=== PATIENT | male | born 1970 | race Caucasian/White ===

== ENCOUNTER 2016-06-27 06:25 | Inpatient (IN) | payer BC ==
[2016-06-27] MEDS: Lactated Ringers 1,000 ML IV SCH ×2 (06:50→12:29)
[2016-06-27] MEDS ORDERED: fentaNYL 250 MCG/5 ML SDV ONE (07:20)
[2016-06-27] MEDS ORDERED: Midazolam 1 MG/ML 2 ML SDV ONE (07:20)
[2016-06-27] MEDS ORDERED: Lidocaine 2% 5 ML SDV ONE (07:20)
[2016-06-27] MEDS ORDERED: Propofol 200 MG/20 ML SDV ONE ×2 (07:20→09:06)
[2016-06-27] MEDS ORDERED: Ondansetron 4 MG/2 ML SDV ONE (07:24)
[2016-06-27] MEDS ORDERED: Neostigmine Methylsulfate 1 MG/ML 5 ML Syringe ONE (07:24)
[2016-06-27] MEDS ORDERED: Ketorolac 30 MG/ML SDV ONE (07:24)
[2016-06-27] MEDS ORDERED: Rocuronium 10 MG/ML 10 ML Syringe ONE (07:24)
--- NOTE | 2016-06-27 07:28 | PCM.PREANE ---
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 Respiratory: Reports: no symptoms Cardiovascular: Reports: no symptoms (however, detailed cardiac w/u for angina last year), blood pressure problem (treated) GI: Reports: no symptoms Other: Reports: none - PHYSICAL ASSESSMENT O2 Sat by Pulse Oximetry: 95 RR: 18 Vital Signs: Last Vital Signs Temp 98.2 F 06/27/16 06:48 Pulse 76 06/27/16 06:48 Resp 18 06/27/16 06:48 BP 123/76 06/27/16 06:48 Pulse Ox 95 06/27/16 06:48 Height: 6 ft 2 in Weight: 320 lb ASA Class: 3 Mental Status: alert & oriented x3 Airway Class: Mallampati = 3 Dentition: Reports: normal dentition Thyro-Mental Finger Breadths: 3 Mouth Opening Finger Breadths: 3 ROM/Head Extension: full Respiratory Status: lungs clear to auscultation bilaterally Cardiovascular Status: regular rate & rhythm, no murmur - ALLERGIES Allergies/Adverse Reactions: Allergies Allergy/AdvReac Type Severity Reaction Status Date / Time aspirin Allergy Cannot Verified 01/15/16 11:08 Remember Sulfa (Sulfonamide Allergy Anaphylactic Verified 01/15/16 11:08 Antibiotics) Shock sulfamethoxazole Allergy Anaphylactic Verified 01/15/16 11:08 [From Bactrim] Shock trimethoprim [From Bactrim] Allergy Anaphylactic Verified 01/15/16 11:08 Shock venom-honey bee Allergy Anaphylactic Verified 01/15/16 11:08 [bee venom (honey bee)] Shock - BLOOD Blood Available: Yes Product(s) Available: PRBC - ANESTHESIA PLAN Preop Beta Reshma: Yes Beta Reshma: Metoprolol Anesthesia Type Planned: general anesthesia (patient understood and agreed), spinal - ACKNOWLEDGEMENTS Pt an appropriate candidate for the planned anesthesia: Yes Alternatives and risks of anesthesia discussed w pt/guardian: Yes Pt/Guardian understands and agree with anesthesia plan: Yes PreAnesthesia Questionnaire - Past Health History Medical/Surgical History: Denies Medical/Surgical History HEENT History: Reports: None Cardiovascular History: Reports: High cholesterol, Hypertension, CA Other Cardiovascular History: states CA in dec 2015 Respiratory History: Reports: Sleep apnea Other Respiratory History: uses CPAP Gastrointestinal History: Reports: None Genitourinary History: Reports: None Musculoskeletal History: Reports: Arthritis Neurological History: Reports: None Psychiatric History: Reports: Anxiety Endocrine/Metabolic History: Reports: Obesity/BMI 30+ Hematologic History: Reports: None Immunologic History: Reports: None Oncologic (Cancer) History: Reports: None Dermatologic History: Reports: None - Infectious Disease History Infectious Disease History: Reports: None - Past Surgical History Head Surgeries/Procedures: Reports: None - SUBSTANCE USE Smoking Status *Q: Never Smoker Second Hand Smoke Exposure: No Days Per Week of Alcohol Use: 0 Recreational Drug Use History: No - HOME MEDS Home Medications: Home Meds ALPRAZolam [Xanax] 0.25 mg PO DAILY PRN 01/15/16 [History] Lisinopril/Hydrochlorothiazide [Lisinopril-Hctz 10-12.5 mg Tab] 1 each PO DAILY 01/15/16 [History] Clopidogrel Bisulfate [Plavix] 75 mg PO DAILY 06/22/16 [History] Metoprolol Succinate 50 mg PO DAILY 06/22/16 [History] Multivitamin [Multivitamins] 1 tab PO DAILY 06/22/16 [History] atorvaSTATin Calcium [Atorvastatin Calcium] 20 mg PO DAILY 06/22/16 [History] - CURRENT (IN HOUSE) MEDS Current Meds: Current Medications Lactated Ringer's (Ringers, Lactated) 1,000 mls @ 100 mls/hr IV ASDIRECTED [facility] Last Admin: 06/27/16 06:50 Dose: 100 mls/hr Discontinued Medications Fentanyl (Sublimaze) Confirm Administered Dose 250 mcg .ROUTE .STK-MED ONE Stop: 06/27/16 07:21 Cefazolin Sodium 2,000 mg/ (Sodium Chloride) 100 mls @ 100 mls/hr IV ONETIME ONE Stop: 06/26/16 18:48 Lidocaine (Xylocaine-Mpf 2%) Confirm Administered Dose 10 ml .ROUTE .STK-MED ONE Stop: 06/27/16 07:21 Midazolam HCl (Versed 1 Mg/Ml) Confirm Administered Dose 2 mg .ROUTE .STK-MED ONE Stop: 06/27/16 07:21 Propofol (Diprivan 20 Ml) Confirm Administered Dose 400 mg .ROUTE .STK-MED ONE Stop: 06/27/16 07:21 Tranexamic Acid (Cyklokapron) Confirm Administered Dose 2,000 mg .ROUTE .[facility] MED ONE Stop: 06/26/16 14:51
[2016-06-27] MEDS ORDERED: ceFAZolin 2 GM in Premix Bag 1 BAG IV ONE (07:30)
[2016-06-27] MEDS ORDERED: Succinylcholine/Normal Saline 200 MG/10 ML Syringe IV ONE (08:05)
[2016-06-27] MEDS ORDERED: Phenylephrine/Normal Saline 100 MCG/ML 10 ML Syringe ONE (08:48)
[2016-06-27] MEDS ORDERED: fentaNYL 100 MCG/2 ML SDV IVPUSH PRN (09:02)
[2016-06-27] MEDS ORDERED: HYDROmorphone 2 MG/ML Syringe IVPUSH ONE (09:02)
--- NOTE | 2016-06-27 09:51 | PCM.OPNOTE ---
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
[2016-06-27] MEDS ORDERED: Bisacodyl 10 MG Supp RECTAL PRN (10:03)
[2016-06-27] MEDS ORDERED: Aluminum Hydroxide/Magnesium Hydroxide/Simethicone Susp 30 ML Cup PO PRN (10:03)
[2016-06-27] MEDS ORDERED: diphenhydrAMINE 25 MG Cap PO PRN (10:03)
[2016-06-27] MEDS ORDERED: Morphine 10 MG/ML Syringe IVPUSH PRN (10:03)
[2016-06-27] MEDS ORDERED: Ondansetron 4 MG/2 ML SDV IV PRN (10:03)
[2016-06-27] MEDS ORDERED: ALPRAZolam 0.25 MG Tab PO PRN ×2 (10:04→13:01)
[2016-06-27] MEDS ORDERED: Dermabond Prineo 1 Tube TOP ONE (10:30)
--- NOTE | 2016-06-27 11:22 | CR ---
EXAMINATION: Right hip HISTORY: Surgery COMPARISON: 01/03/2016 TECHNIQUE: 3 views FINDINGS/IMPRESSION: Operative control films demonstrate right total hip hardware in good position a nd alignment. Overlying operative soft tissue changes noted.
--- NOTE | 2016-06-27 11:31 | PCM.POSTAN ---
POST ANESTHESIA ASSESSMENT - MENTAL STATUS Mental Status: alert, oriented - RESPIRATORY Respiratory Status: respiratory rate WNL, airway patent, O2 saturation stable - CARDIOVASCULAR CV Status: pulse rate WNL, blood pressure stable - GASTROINTESTINAL GI Status: no symptoms - PAIN Pain Score: 0 - POST OP HYDRATION Hydration Status: adequate & stable
[2016-06-27] MEDS: Ketorolac 30 MG/ML SDV IVPUSH PRN ×2 (12:38→19:51)
--- NOTE | 2016-06-27 13:07 | PCM.CONS ---
H&P History of Present Illness - General Date of Service: 06/27/16 Admit Problem/Dx: Admission Diagnosis/Problem Admission Diagnosis/Problem Hip pain Source of Information: Patient History Limitations: Reports: Other (still drowsy from PACU, girlfriend Kiara at bedside helps with history) - History of Present Illness Initial Comments - Free Text/Narative: This 46 year old male with pmh of ID without stenting 12/2015, CAD, HTN, obesity , and dyslipidemia presented today for total hip with Dr. Rocha. Hospitalist service consulted due to history of CAD, ID and HTN. Patient has returned from PACU, still slightly drowsy. Girlfriend Kiara at bedside helps with history. He denies any SOB or chest pain now. A little bit of hip pain, but easily falls back asleep. He did not take any medications today, he normally takes all his meds at supper time since it is easier to remember. - Related Data Allergies/Adverse Reactions: Allergies Allergy/AdvReac Type Severity Reaction Status Date / Time aspirin Allergy Cannot Verified 01/15/16 11:08 Remember Sulfa (Sulfonamide Allergy Anaphylactic Verified 01/15/16 11:08 Antibiotics) Shock sulfamethoxazole Allergy Anaphylactic Verified 01/15/16 11:08 [From Bactrim] Shock trimethoprim [From Bactrim] Allergy Anaphylactic Verified 01/15/16 11:08 Shock venom-honey bee Allergy Anaphylactic Verified 01/15/16 11:08 [bee venom (honey bee)] Shock Home Medications: Home Meds ALPRAZolam [Xanax] 0.25 mg PO DAILY PRN 01/15/16 [History] Lisinopril/Hydrochlorothiazide [Lisinopril-Hctz 10-12.5 mg Tab] 1 each PO DAILY 01/15/16 [History] Clopidogrel Bisulfate [Plavix] 75 mg PO DAILY 06/22/16 [History] Metoprolol Succinate 50 mg PO DAILY 06/22/16 [History] Multivitamin [Multivitamins] 1 tab PO DAILY 06/22/16 [History] atorvaSTATin Calcium [Atorvastatin Calcium] 20 mg PO DAILY 06/22/16 [History] Acetaminophen/HYDROcodone [[place] 325-5 MG] 1 - 2 tab PO Q4H PRN #60 tablet 06/27 [Rx] DULoxetine HCl [Cymbalta] 30 mg PO DAILY 06/27/16 [History] Docusate Sodium [Colace] 100 mg PO BID #30 capsule 06/27/16 [Rx] Past Medical History - Past Health History Medical/Surgical History: Denies Medical/Surgical History HEENT History: Reports: None Cardiovascular History: Reports: CAD, High cholesterol, Hypertension, ID ( December 2015, no stents placed, Angiogram revealed non-obstructive CAD with diffuse distal plaquing of the left anterior descending artery.) Respiratory History: Reports: Sleep apnea Other Respiratory History: uses CPAP Gastrointestinal History: Reports: None. Denies: GERD, GI bleed Genitourinary History: Reports: None Musculoskeletal History: Reports: Arthritis Neurological History: Reports: None. Denies: CVA, TIA Psychiatric History: Reports: Anxiety Endocrine/Metabolic History: Reports: Obesity/BMI 30+ Hematologic History: Reports: None Immunologic History: Reports: None Oncologic (Cancer) History: Reports: None Dermatologic History: Reports: None - Infectious Disease History Infectious Disease History: Reports: None - Past Surgical History Head Surgeries/Procedures: Reports: None Social & Family History - Tobacco Use Smoking Status *Q: Never Smoker Second Hand Smoke Exposure: No - Caffeine Use Caffeine Use: Reports: Coffee - Alcohol Use Alcohol Use History: No Days Per Week of Alcohol Use: 0 - Recreational Drug Use Recreational Drug Use: No - Living Situation & Occupation Living situation: Reports: with significant other Occupation: employed H&P Review of Systems - Review of Systems: Review Of Systems: See Below General: Reports: no symptoms. Denies: fever, chills, malaise HEENT: Reports: no symptoms. Denies: ear pain, sinus congestion, visual changes Pulmonary: Reports: no symptoms. Denies: shortness of breath, cough, sputum Cardiovascular: Reports: no symptoms. Denies: chest pain, palpitations, edema Gastrointestinal: Reports: No symptoms. Denies: Abdominal pain Genitourinary: Reports: no symptoms Musculoskeletal: Reports: joint pain (R hip, 2/10) Skin: Reports: no symptoms Psychiatric: Reports: no symptoms Neurological: Reports: no symptoms Hematologic/Lymphatic: Reports: no symptoms Immunologic: Reports: no symptoms Exam - Exam Exam: See Below - Vital Signs Vital Signs: Last Vital Signs Temp 97.3 F 06/27/16 10:05 Pulse 80 06/27/16 10:55 Resp 20 06/27/16 10:55 BP 148/86 H 06/27/16 10:55 Pulse Ox 97 06/27/16 10:55 Weight: 145.15 kg - Exam Quality Assessment: supplemental oxygen, DVT prophylaxis General: alert, oriented, cooperative, other (still drowsy from sedation.) HEENT: Conjunctiva clear, EACs clear, EOMI, Hearing intact, Mucosa moist & pink , Nares patent, PERRLA Neck: supple, trachea midline, 2 Lungs: Clear to auscultation, Normal respiratory effort Cardiovascular: regular rate, regular rhythm, normal S1, normal S2. No: systolic murmur Abdomen: normal bowel sounds, soft. No: organomegaly, tenderness Extremities: normal inspection, normal pulses. No: edema Skin: incision Neuro Extensive - Mental Status: alert, oriented x3 Neuro Extensive - Motor, Sensory, Reflexes: CN II-XII intact, normal gait, normal reflexes Psychiatric: alert, normal affect, normal mood - Patient Data Lab Results last 24 hrs: Laboratory Results - last 24 hr 06/27/16 Range/Units 07:07 Blood Type A POSITIVE Antibody Screen NEGATIVE Consult PN Assessment/Plan Procedures: Procedures ASSAY OF TROPONIN QUANT (01/15/16) CHEST X-RAY 1 VIEW FRONTAL (01/15/16) COMPLETE CBC W/AUTO DIFF WBC (01/15/16) COMPREHEN METABOLIC PANEL (01/15/16) CREATINE MB FRACTION (01/15/16) ELECTROCARDIOGRAM TRACING (01/15/16) EMERGENCY DEPT VISIT (01/15/16) EMERGENCY DEPT VISIT (11/01/13) THER/PROPH/DIAG INJ SC/IM (01/15/16) X-RAY EXAM HIP UNI 2-3 VIEWS (01/03/16) (1) Hx of non-ST elevation myocardial infarction (NSTEMI) SNOMED Code(s): 2763723 Code(s): I25.2 - OLD MYOCARDIAL INFARCTION Current Visit: Yes (2) HTN (hypertension) SNOMED Code(s): 28944817 Code(s): I10 - ESSENTIAL (PRIMARY) HYPERTENSION Current Visit: Yes Qualifiers: Hypertension type: essential hypertension Qualified Code(s): I10 - Essential (primary) hypertension (3) Dyslipidemia SNOMED Code(s): 954344096 Code(s): E78.5 - HYPERLIPIDEMIA, UNSPECIFIED Current Visit: Yes (4) CAD (coronary artery disease) SNOMED Code(s): 69257941 Code(s): I25.10 - ATHSCL HEART DISEASE OF [place] CORONARY ARTERY W/O ANG PCTRS Current Visit: Yes Qualifiers: Coronary Disease-Associated Artery/Lesion type: [place] artery [place] vs. transplanted heart: [place] heart Associated angina: without angina Qualified Code(s): I25.10 - Atherosclerotic heart disease of [place] coronary artery without angina pectoris (5) Obesity SNOMED Code(s): 375171610 Code(s): E66.9 - OBESITY, UNSPECIFIED Current Visit: Yes Problem List Initiated/Reviewed/Updated: Yes My Orders last 24 hours: My Active Orders 06/27/16 12:57 Telemetry Monitoring [Cardiac Monitoring] [RC] . DIRECTED Plan: This 46 year old male admitted with Dr Rocha for R total hip arthoplasty 1. HTN: Continue Lisinopril/HCTZ, Metoprolol XR 2. CAD: Continue Plavix, and Atorvastatin 3. Anxiety: Continue Xanax 4. Hx NSTEMI: No chest pain currently. Will monitor on telemetry during stay. VTE: Per Ortho.
[2016-06-27] MEDS: ceFAZolin 2 GM in Premix Bag 1 BAG IV SCH (15:47)
[2016-06-27 15:49] LABS: CHLORIDE,CL 106 mmol/L (98-110); SODIUM,NA 140 mmol/L (136-146)
[2016-06-27] MEDS: Acetaminophen/HYDROcodone 325-5 MG Tab PO PRN (17:15)
[2016-06-27] MEDS: Lisinopril 10 MG Tab PO SCH (17:15)
[2016-06-27] MEDS: Clopidogrel 75 MG Tab PO SCH (17:17)
[2016-06-27] MEDS: Hydrochlorothiazide 12.5 MG Cap PO SCH (17:17)
[2016-06-27] MEDS: atorvaSTATin 20 MG Tab PO SCH (17:17)
[2016-06-27] MEDS: Multivitamins with Iron/Calcium/Folic Acid/Minerals Tab PO SCH (17:17)
[2016-06-27] MEDS: Metoprolol Succinate 50 MG Tab.ER PO SCH (17:17)
[2016-06-27] MEDS: Docusate Sodium 100 MG Cap PO SCH (20:07)
[2016-06-27] MEDS ORDERED: Acetaminophen 500 MG Tab PO PRN (20:34)
[2016-06-28] MEDS: Lactated Ringers 1,000 ML IV SCH (00:01)
[2016-06-28] MEDS: ceFAZolin 2 GM in Premix Bag 1 BAG IV SCH (00:13)
[2016-06-28 05:52] LABS: CHLORIDE,CL 106 mmol/L (98-110); SODIUM,NA 140 mmol/L (136-146)
--- NOTE | 2016-06-28 06:16 | OR ---
SURGEON: Frankie Rocha MD DATE OF PROCEDURE: 06/27/2016 PRACTICAL NURSE CLINICAL COORDINATOR: Yeimy Bansal PA-C. PREOPERATIVE DIAGNOSIS: Right hip dysplasia with osteoarthritis. POSTOPERATIVE DIAGNOSIS: Right hip dysplasia with osteoarthritis. OPERATION PERFORMED: Right anterior total hip arthroplasty. ANESTHESIA: Spinal and general. COMPLICATIONS: None. ESTIMATED BLOOD LOSS: 100 mL. SPECIMENS: Femoral head. IMPLANTS: [employer] Continuum trabecular metal shell with cluster holes, 58 mm outer diameter, one 6.5 x 30 mm length bone screw. Vivacit-E neutral liner 36 mm inner diameter, Avenir Conrad hip stem uncemented size 5 and BIOLOX delta ceramic femoral head 36 mm diameter +7 neck length. INDICATIONS: The patient is a 46-year-old male with severe hip OA with dysplasia. He has failed conservative management, modification therapy, injections, and wished to undergo total hip replacement. He understands the risks, benefits, complications of the procedure and he wished to proceed. PROCEDURE IN DETAIL: The patient was seen in preoperative area. Operative extremity was marked with the patient. He was transferred to operating room and spinal anesthetic was given. He was placed supine on the Carrington table with a narrow perineal post. He received preop antibiotics Ancef and also 2 g of TXA. The right hip was prepped and draped in a sterile fashion using alcohol followed by ChloraPrep with Ioban covering. A formal time-out was taken, identifying the correct patient, procedure, and extremity. Rolf WADSWORTH, was instrumental in the case with retracting and manipulating the leg as well as closing. A 12 cm incision starting just lateral to the ASIS, going obliquely down femur was made. Dissection carried down to subcutaneous tissues. Hemostasis was obtained. The fascia overlying the TFL was opened and the interval between the TFL and sartorius and deep between the abductors and rectus was opened. 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 Deep Tyler retractor was placed. The capsule was then held and tagged with two #2 FiberWire for later repair. Then the neck was cut from center region down to about 1 cm above the lesser trochanter and the head was removed. Anterior mathematics teacher retractors were placed. The patient had a large redundant labrum posteriorly, which was removed, but none anteriorly. After cleaning off the acetabulum under fluoroscopic control, the acetabulum was reamed starting at 51 up to 57 mm going superior and medial to get good fit. This had excellent fill and then under fluoroscopic control after planing the bed to make sure it was level. A 58 mm Continuum trabecular metal shell with cluster holes were placed with screw holes straight superiorly and 45 degrees of abduction and 10 degrees of anteversion. This had excellent press fit. Once straight superior bone screw was placed and then the hip was irrigated the neutral liner was impacted. Attention was then paid to the leg, the leg was externally rotated, abducted and extended. The medial capsule was released. Superior capsule, obturator internus and piriformis were released taking care to preserve the obturator externus. Central canal finder was used and excellent broaching from size 1 to size 5 was made trying to decrease the anteversion slightly on the hip. This had excellent fit and fill. It was trialed with a zero neck length. Printed overlay technique with the opposite hip showed the leg lengths to be decreased, but the offset to be slightly increased based on his anatomy, but there was excellent fill of the canal. The hip was then dislocated. Attempt was made to place a size 6 broach, but it did not go more than three quarters way down, so final 5 Avenir Conrad hip stem was placed taking it several degrees of anteversion off the femoral neck and after irrigating, this was impacted. It was trialed with a +3.5 neck length and this showed a slightly increased offset and slightly decreased leg lengths on the opposite side and therefore a +7 head was impacted. The hip was then reduced. There were no Shuck and no dislocation. The wound was then thoroughly irrigated. The two tag sutures were tied together. The fascia was closed with #1 Vicryl. Subcutaneous tissues closed with the 2-0 STRATAFIX. The skin was closed running 4-0 Monocryl and Dermabond tape. Aquacel dressing was placed. Aquacel dressing was placed. The patient was extubated in the operating room and transferred to recovery room in stable condition. Sponge and needle counts correct at the end of the case. There were no complications. PLAN: The patient will follow up postop rehab protocol taking Plavix for DVT prophylaxis. EBONY / BLADIMIR /[id number]
[2016-06-28] MEDS ORDERED: Sodium Chloride 0.9% 10 ML Syringe FLUSH PRN (07:14)
[2016-06-28] MEDS ORDERED: Sodium Chloride 0.9% 2.5 ML Syringe FLUSH PRN (07:14)
--- NOTE | 2016-06-28 07:16 | PCM.SN ---
- Free Text/Narrative Note: S: some pain, has ambulated to bathroom several times. difficult to lift leg. some numbness lateral to incision. no other issues. no nausea O: afebrile, vital signs stable dressing clean/dry/intact with no erythema. no swelling distally. some numbness lateral to incision. normal sensation and motor distal with palpable pedal pulse. HGB 12.7 A/P: POD #1 Right HERSON - full weight bearing, PT - Home dose of plavix and SCDs for DVT prophylaxis - home when up and moving well - IV
--- NOTE | 2016-06-28 07:19 | PCM.DCSUM1 ---
Discharge Summary - Hospital Course Brief History: Pt. admitted for elective right hip arthroplasty - Discharge Data Discharge Date: 06/28/16 Discharge Disposition: Home, Self-Care 01 Condition: Stable - Patient Summary/Data Operative Procedure(s) Performed: right anterior total hip arthroplasty Consults: Consultations 06/27/16 10:01 Consult to Physician [CONS] Routine 06/27/16 10:02 PT Evaluation and Treatment [CONS] Routine Recommended Follow-up Testing/Procedures: 1-2 weeks in clinic - Patient Instructions Diet: Usual Diet as Tolerated Activity: Apply Ice, Full Weight Bearing Driving: Do Not Drive Showering/Bathing: May Shower Wound/Incision Care: Do NOT Change Dressing Notify Provider of: Fever, Swelling and Redness, Drainage - Discharge Plan Prescriptions/Med Rec: Acetaminophen/HYDROcodone [[place] 325-5 MG] 1 - 2 tab PO Q4H PRN #60 tablet PRN Reason: Pain Docusate Sodium [Colace] 100 mg PO BID #30 capsule Home Medications: Home Meds ALPRAZolam [Xanax] 0.25 mg PO DAILY PRN 01/15/16 [History] Lisinopril/Hydrochlorothiazide [Lisinopril-Hctz 10-12.5 mg Tab] 1 each PO DAILY 01/15/16 [History] Clopidogrel Bisulfate [Plavix] 75 mg PO DAILY 06/22/16 [History] Metoprolol Succinate 50 mg PO DAILY 06/22/16 [History] Multivitamin [Multivitamins] 1 tab PO DAILY 06/22/16 [History] atorvaSTATin Calcium [Atorvastatin Calcium] 20 mg PO DAILY 06/22/16 [History] Acetaminophen/HYDROcodone [[place] 325-5 MG] 1 - 2 tab PO Q4H PRN #60 tablet 06/27 [Rx] DULoxetine HCl [Cymbalta] 30 mg PO DAILY 06/27/16 [History] Docusate Sodium [Colace] 100 mg PO BID #30 capsule 06/27/16 [Rx] Patient Handouts: Acetaminophen; Hydrocodone tablets or capsules, Total Hip Replacement, [id number], Total Hip Replacement, Care After, [id number], Docusate capsules - Discharge Summary/Plan Comment DC Time >30 min.: No - Patient Data Vitals - Most Recent: Last Vital Signs Temp 37.1 C 06/28/16 04:00 Pulse 94 06/28/16 04:00 Resp 20 06/28/16 04:00 BP 117/66 06/28/16 04:00 Pulse Ox 94 L 06/28/16 00:00 Weight - Most Recent: 145.15 kg I&O - Last 24 hours: Intake & Output 06/27/16 06/28/16 06/28/16 22:59 06:59 14:59 Intake Total 402 500 Output Total 800 Balance 402 -300 Lab Results - Last 24 hrs: Laboratory Results - last 24 hr 06/27/16 06/27/16 06/27/16 Range/Units 07:07 15:07 15:07 WBC 11.96 H (4.0-11.0) K/uL RBC 5.06 (4.50-5.90) M/uL Hgb 13.7 (13.0-17.0) g/dL Hct 42.4 (38.0-50.0) % MCV 83.8 (80.0-98.0) fL MCH 27.1 (27.0-32.0) pg MCHC 32.3 (31.0-37.0) g/dL RDW Std Deviation 47.1 (28.0-62.0) fl RDW Coeff of Derek 16 H (11.0-15.0) % Plt Count 146 L (150-400) K/uL MPV 9.90 (7.40-12.00) fL Neut % (Auto) 85.1 H (48.0-80.0) % Lymph % (Auto) 7.6 L (16.0-40.0) % [place] % (Auto) 6.9 (0.0-15.0) % Eos % (Auto) 0.3 (0.0-7.0) % Baso % (Auto) 0.1 (0.0-1.5) % Neut # 10.2 H (1.4-5.7) K/uL Lymph # 0.9 (0.6-2.4) K/uL [place] # 0.8 (0.0-0.8) K/uL Eos # 0.0 (0.0-0.7) K/uL Baso # 0.0 (0.0-0.1) K/uL Nucleated RBC % 0.0 /100WBC Nucleated RBCs # 0 K/uL Sodium 140 (136-146) mmol/L Potassium 4.2 (3.5-5.1) mmol/L Chloride 106 (98-110) mmol/L Carbon Dioxide 28 (21-31) mmol/L BUN 15 (6.0-23.0) mg/dL Creatinine 1.0 (0.6-1.5) mg/dL Est Cr Clr Drug Dosing 109.15 mL/min Estimated GFR (MDRD) > 60.0 ml/min Glucose 153 H (60-110) mg/dL Calcium 8.3 L (8.8-10.8) mg/dL Total Bilirubin 0.6 (0.1-1.5) mg/dL AST 28 (5-40) IU/L ALT 38 (8-54) IU/L Alkaline Phosphatase 51 (40-150) Total Protein 6.1 (6.0-8.0) g/dL Albumin 3.5 (3.5-5.0) g/dL Globulin 2.6 (2.0-3.5) g/dL Albumin/Globulin Ratio 1.4 (1.3-2.8) Blood Type A POSITIVE Antibody Screen NEGATIVE 06/28/16 06/28/16 Range/Units 04:42 04:42 WBC (4.0-11.0) K/uL RBC (4.50-5.90) M/uL Hgb 12.7 L (13.0-17.0) g/dL Hct 38.1 (38.0-50.0) % MCV (80.0-98.0) fL MCH (27.0-32.0) pg MCHC (31.0-37.0) g/dL RDW Std Deviation (28.0-62.0) fl RDW Coeff of Derek (11.0-15.0) % Plt Count (150-400) K/uL MPV (7.40-12.00) fL Neut % (Auto) (48.0-80.0) % Lymph % (Auto) (16.0-40.0) % [place] % (Auto) (0.0-15.0) % Eos % (Auto) (0.0-7.0) % Baso % (Auto) (0.0-1.5) % Neut # (1.4-5.7) K/uL Lymph # (0.6-2.4) K/uL [place] # (0.0-0.8) K/uL Eos # (0.0-0.7) K/uL Baso # (0.0-0.1) K/uL Nucleated RBC % /100WBC Nucleated RBCs # K/uL Sodium 140 (136-146) mmol/L Potassium 4.0 (3.5-5.1) mmol/L Chloride 106 (98-110) mmol/L Carbon Dioxide 26 (21-31) mmol/L BUN 17 (6.0-23.0) mg/dL Creatinine 0.9 (0.6-1.5) mg/dL Est Cr Clr Drug Dosing 121.27 mL/min Estimated GFR (MDRD) > 60.0 ml/min Glucose 116 H (60-110) mg/dL Calcium 8.1 L (8.8-10.8) mg/dL Total Bilirubin (0.1-1.5) mg/dL AST (5-40) IU/L ALT (8-54) IU/L Alkaline Phosphatase (40-150) Total Protein (6.0-8.0) g/dL Albumin (3.5-5.0) g/dL Globulin (2.0-3.5) g/dL Albumin/Globulin Ratio (1.3-2.8) Blood Type Antibody Screen Med Orders - Current: Current Medications Acetaminophen (Tylenol Extra Strength) 1,000 mg PO Q8H PRN PRN Reason: Fever Greater Than 101 Last Admin: 06/27/16 21:52 Dose: 1,000 mg Acetaminophen/Hydrocodone Bitart ([place] 325-5 Mg) 1 - 2 tab PO Q4H PRN PRN Reason: Pain Last Admin: 06/27/16 17:15 Dose: 2 tab Al Hydroxide/Mg Hydroxide (Mag-Al Plus) 30 ml PO Q4H PRN PRN Reason: indigestion Alprazolam (Xanax) 0.25 mg PO BEDTIME PRN PRN Reason: Anxiety Atorvastatin Calcium (Lipitor) 20 mg PO DAILY@1700 [facility] Last Admin: 06/27/16 17:17 Dose: 20 mg Bisacodyl (Dulcolax) 10 mg RECTAL DAILY PRN PRN Reason: Constipation Clopidogrel Bisulfate (Plavix) 75 mg PO DAILY@1700 [facility] Last Admin: 06/27/16 17:17 Dose: 75 mg Diphenhydramine HCl (Benadryl) 25 - 50 mg PO Q6H PRN PRN Reason: Itching Docusate Sodium (Colace) 100 mg PO BID [facility] Last Admin: 06/27/16 20:07 Dose: 100 mg Hydrochlorothiazide (Hydrochlorothiazide) 12.5 mg PO DAILY@1700 [facility] Last Admin: 06/27/16 17:17 Dose: 12.5 mg Lactated Ringer's (Ringers, Lactated) 1,000 mls @ 100 mls/hr IV ASDIRECTED [facility] Last Admin: 06/28/16 00:01 Dose: 100 mls/hr Ketorolac Tromethamine (Toradol) 30 mg IVPUSH Q6H PRN PRN Reason: Pain Stop: 06/28/16 09:00 Last Admin: 06/27/16 19:51 Dose: 30 mg Lisinopril (Prinivil) 10 mg PO DAILY@1700 [facility] Last Admin: 06/27/16 17:15 Dose: 10 mg Metoprolol Succinate (Toprol Xl) 50 mg PO DAILY@1700 [facility] Last Admin: 06/27/16 17:17 Dose: 50 mg Morphine Sulfate (Morphine) 1 - 3 mg IVPUSH Q3H PRN PRN Reason: Pain Last Admin: 06/28/16 03:42 Dose: 2 mg Multivitamins/Minerals (Thera M Plus) 1 tab PO DAILY@1700 [facility] Last Admin: 06/27/16 17:17 Dose: 1 tab Ondansetron HCl (Zofran) 4 mg IV Q6HR PRN PRN Reason: NAUSEA/VOMITING Sodium Chloride (Saline Flush) 10 ml FLUSH ASDIRECTED PRN PRN Reason: Keep Vein Open Sodium Chloride (Saline Flush) 2.5 ml FLUSH ASDIRECTED PRN PRN Reason: Keep Vein Open Discontinued Medications Alprazolam (Xanax) 0.25 mg PO DAILY PRN PRN Reason: Anxiety Fentanyl (Sublimaze) Confirm Administered Dose 250 mcg .ROUTE .STK-MED ONE Stop: 06/27/16 07:21 Fentanyl (Sublimaze) 50 mcg IVPUSH Q5M PRN PRN Reason: Pain (severe 7-10) Stop: 06/28/16 09:02 Glycopyrrolate (Robinul) Confirm Administered Dose 1 mg .ROUTE .STK-MED ONE Stop: 06/27/16 07:25 Hydromorphone HCl (Dilaudid) 0 mg IVPUSH ONETIME ONE Stop: 06/27/16 09:03 Last Admin: 06/27/16 13:08 Dose: Not Given Cefazolin Sodium 2,000 mg/ (Sodium Chloride) 100 mls @ 100 mls/hr IV ONETIME ONE Stop: 06/26/16 18:48 Last Admin: 06/27/16 12:25 Dose: Not Given Cefazolin Sodium/Dextrose 2 gm (/ Premix) 50 mls @ as directed IV .ST-MED ONE Stop: 06/27/16 07:31 Cefazolin Sodium/Dextrose 2 gm (/ Premix) 50 mls @ 100 mls/hr IV Q8H [facility] Stop: 06/28/16 00:29 Last Infusion: 06/28/16 03:45 Dose: Infused Ketorolac Tromethamine (Toradol) Confirm Administered Dose 30 mg .ROUTE .STK- MED ONE Stop: 06/27/16 07:25 Lidocaine (Xylocaine-Mpf 2%) Confirm Administered Dose 10 ml .ROUTE .ST-MED ONE Stop: 06/27/16 07:21 Midazolam HCl (Versed 1 Mg/Ml) Confirm Administered Dose 2 mg .ROUTE .STK-MED ONE Stop: 06/27/16 07:21 Neostigmine Methylsulfate (Neostigmine) Confirm Administered Dose 5 mg .ROUTE .ST-MED ONE Stop: 06/27/16 07:25 Octyl Cyanoacrylate (Dermabond Prineo) 1 applic TOP ONETIME ONE Stop: 06/27/16 10:31 Last Admin: 06/27/16 15:21 Dose: Not Given Ondansetron HCl (Zofran) Confirm Administered Dose 4 mg .ROUTE .STK-MED ONE Stop: 06/27/16 07:25 Phenylephrine HCl (Phenylephrine In Ns 100 Mcg/Ml) Confirm Administered Dose 1 mg .ROUTE .STK-MED ONE Stop: 06/27/16 08:49 Propofol (Diprivan 20 Ml) Confirm Administered Dose 400 mg .ROUTE .STK-MED ONE Stop: 06/27/16 07:21 Propofol (Diprivan 20 Ml) Confirm Administered Dose 200 mg .ROUTE .STK-MED ONE Stop: 06/27/16 09:07 Rocuronium [place] (Zemuron) Confirm Administered Dose 100 mg .ROUTE .STK-MED ONE Stop: 06/27/16 07:25 Succinylcholine Chloride (Succinylcholine In Ns Pf) 200 mg IV .STK-MED ONE Stop: 06/27/16 08:06 Tranexamic Acid (Cyklokapron) Confirm Administered Dose 2,000 mg .ROUTE .STK- MED ONE Stop: 06/26/16 14:51 *Q Meaningful Use (DIS) - VTE *Q VTE Criteria *Q: - Stroke *Q Stroke Criteria *Q: - AMI *Q AMI Criteria *Q:
[2016-06-28] MEDS: Acetaminophen/HYDROcodone 325-5 MG Tab PO PRN ×4 (08:34→23:11)
[2016-06-28] MEDS: Docusate Sodium 100 MG Cap PO SCH ×2 (08:34→21:05)
--- NOTE | 2016-06-28 09:45 | PCM.CONSN ---
- General Info Date of Service: 06/28/16 Admission Dx/Problem (Free Text): Admission Diagnosis/Problem Admission Diagnosis/Problem Hip pain Subjective Update: Having some hip pain this morning. Ready for discharge today. Denies chest pain or SOB. Has no other concerns beside having hip pain which is covered well with pain medications. Encouraged CDB and IS use even upon discharge and at home. Functional Status: Reports: pain controlled, tolerating diet, ambulating, urinating - Review of Systems General: Reports: fever. Denies: weakness, malaise, chills HEENT: Reports: no symptoms. Denies: sinus congestion, sore throat Pulmonary: Reports: no symptoms. Denies: shortness of breath, cough, sputum Cardiovascular: Reports: no symptoms. Denies: chest pain Gastrointestinal: Reports: No symptoms. Denies: Abdominal pain Genitourinary: Reports: no symptoms Neurological: Reports: no symptoms Psychiatric: Reports: no symptoms - Patient Data Vitals - most recent: Last Vital Signs Temp 98.7 F 06/28/16 04:00 Pulse 94 06/28/16 04:00 Resp 20 06/28/16 04:00 BP 117/66 06/28/16 04:00 Pulse Ox 94 L 06/28/16 00:00 Weight - most recent: 145.15 kg I&O - last 24 hours: Intake & Output 06/27/16 06/28/16 06/28/16 22:59 06:59 14:59 Intake Total 402 500 Output Total 800 Balance 402 -300 Lab Results last 24 hrs: Laboratory Results - last 24 hr 06/27/16 06/27/16 06/28/16 Range/Units 15:07 15:07 04:42 WBC 11.96 H (4.0-11.0) K/uL RBC 5.06 (4.50-5.90) M/uL Hgb 13.7 12.7 L (13.0-17.0) g/dL Hct 42.4 38.1 (38.0-50.0) % MCV 83.8 (80.0-98.0) fL MCH 27.1 (27.0-32.0) pg MCHC 32.3 (31.0-37.0) g/dL RDW Std Deviation 47.1 (28.0-62.0) fl RDW Coeff of Derek 16 H (11.0-15.0) % Plt Count 146 L (150-400) K/uL MPV 9.90 (7.40-12.00) fL Neut % (Auto) 85.1 H (48.0-80.0) % Lymph % (Auto) 7.6 L (16.0-40.0) % [place] % (Auto) 6.9 (0.0-15.0) % Eos % (Auto) 0.3 (0.0-7.0) % Baso % (Auto) 0.1 (0.0-1.5) % Neut # 10.2 H (1.4-5.7) K/uL Lymph # 0.9 (0.6-2.4) K/uL [place] # 0.8 (0.0-0.8) K/uL Eos # 0.0 (0.0-0.7) K/uL Baso # 0.0 (0.0-0.1) K/uL Nucleated RBC % 0.0 /100WBC Nucleated RBCs # 0 K/uL Sodium 140 (136-146) mmol/L Potassium 4.2 (3.5-5.1) mmol/L Chloride 106 (98-110) mmol/L Carbon Dioxide 28 (21-31) mmol/L BUN 15 (6.0-23.0) mg/dL Creatinine 1.0 (0.6-1.5) mg/dL Est Cr Clr Drug Dosing 109.15 mL/min Estimated GFR (MDRD) > 60.0 ml/min Glucose 153 H (60-110) mg/dL Calcium 8.3 L (8.8-10.8) mg/dL Total Bilirubin 0.6 (0.1-1.5) mg/dL AST 28 (5-40) IU/L ALT 38 (8-54) IU/L Alkaline Phosphatase 51 (40-150) Total Protein 6.1 (6.0-8.0) g/dL Albumin 3.5 (3.5-5.0) g/dL Globulin 2.6 (2.0-3.5) g/dL Albumin/Globulin Ratio 1.4 (1.3-2.8) 06/28/16 Range/Units 04:42 WBC (4.0-11.0) K/uL RBC (4.50-5.90) M/uL Hgb (13.0-17.0) g/dL Hct (38.0-50.0) % MCV (80.0-98.0) fL MCH (27.0-32.0) pg MCHC (31.0-37.0) g/dL RDW Std Deviation (28.0-62.0) fl RDW Coeff of Derek (11.0-15.0) % Plt Count (150-400) K/uL MPV (7.40-12.00) fL Neut % (Auto) (48.0-80.0) % Lymph % (Auto) (16.0-40.0) % [place] % (Auto) (0.0-15.0) % Eos % (Auto) (0.0-7.0) % Baso % (Auto) (0.0-1.5) % Neut # (1.4-5.7) K/uL Lymph # (0.6-2.4) K/uL [place] # (0.0-0.8) K/uL Eos # (0.0-0.7) K/uL Baso # (0.0-0.1) K/uL Nucleated RBC % /100WBC Nucleated RBCs # K/uL Sodium 140 (136-146) mmol/L Potassium 4.0 (3.5-5.1) mmol/L Chloride 106 (98-110) mmol/L Carbon Dioxide 26 (21-31) mmol/L BUN 17 (6.0-23.0) mg/dL Creatinine 0.9 (0.6-1.5) mg/dL Est Cr Clr Drug Dosing 121.27 mL/min Estimated GFR (MDRD) > 60.0 ml/min Glucose 116 H (60-110) mg/dL Calcium 8.1 L (8.8-10.8) mg/dL Total Bilirubin (0.1-1.5) mg/dL AST (5-40) IU/L ALT (8-54) IU/L Alkaline Phosphatase (40-150) Total Protein (6.0-8.0) g/dL Albumin (3.5-5.0) g/dL Globulin (2.0-3.5) g/dL Albumin/Globulin Ratio (1.3-2.8) Med Orders - Current: Current Medications Acetaminophen (Tylenol Extra Strength) 1,000 mg PO Q8H PRN PRN Reason: Fever Greater Than 101 Last Admin: 06/27/16 21:52 Dose: 1,000 mg Acetaminophen/Hydrocodone Bitart ([place] 325-5 Mg) 1 - 2 tab PO Q4H PRN PRN Reason: Pain Last Admin: 06/28/16 08:34 Dose: 2 tab Al Hydroxide/Mg Hydroxide (Mag-Al Plus) 30 ml PO Q4H PRN PRN Reason: indigestion Alprazolam (Xanax) 0.25 mg PO BEDTIME PRN PRN Reason: Anxiety Atorvastatin Calcium (Lipitor) 20 mg PO DAILY@1700 [facility] Last Admin: 06/27/16 17:17 Dose: 20 mg Bisacodyl (Dulcolax) 10 mg RECTAL DAILY PRN PRN Reason: Constipation Clopidogrel Bisulfate (Plavix) 75 mg PO DAILY@1700 [facility] Last Admin: 06/27/16 17:17 Dose: 75 mg Diphenhydramine HCl (Benadryl) 25 - 50 mg PO Q6H PRN PRN Reason: Itching Docusate Sodium (Colace) 100 mg PO BID [facility] Last Admin: 06/28/16 08:34 Dose: 100 mg Hydrochlorothiazide (Hydrochlorothiazide) 12.5 mg PO DAILY@1700 [facility] Last Admin: 06/27/16 17:17 Dose: 12.5 mg Lactated Ringer's (Ringers, Lactated) 1,000 mls @ 100 mls/hr IV ASDIRECTED [facility] Last Admin: 06/28/16 00:01 Dose: 100 mls/hr Lisinopril (Prinivil) 10 mg PO DAILY@1700 [facility] Last Admin: 06/27/16 17:15 Dose: 10 mg Metoprolol Succinate (Toprol Xl) 50 mg PO DAILY@1700 [facility] Last Admin: 06/27/16 17:17 Dose: 50 mg Morphine Sulfate (Morphine) 1 - 3 mg IVPUSH Q3H PRN PRN Reason: Pain Last Admin: 06/28/16 03:42 Dose: 2 mg Multivitamins/Minerals (Thera M Plus) 1 tab PO DAILY@1700 [facility] Last Admin: 06/27/16 17:17 Dose: 1 tab Ondansetron HCl (Zofran) 4 mg IV Q6HR PRN PRN Reason: NAUSEA/VOMITING Sodium Chloride (Saline Flush) 10 ml FLUSH ASDIRECTED PRN PRN Reason: Keep Vein Open Sodium Chloride (Saline Flush) 2.5 ml FLUSH ASDIRECTED PRN PRN Reason: Keep Vein Open Discontinued Medications Alprazolam (Xanax) 0.25 mg PO DAILY PRN PRN Reason: Anxiety Fentanyl (Sublimaze) Confirm Administered Dose 250 mcg .ROUTE .STK-MED ONE Stop: 06/27/16 07:21 Fentanyl (Sublimaze) 50 mcg IVPUSH Q5M PRN PRN Reason: Pain (severe 7-10) Stop: 06/28/16 09:02 Glycopyrrolate (Robinul) Confirm Administered Dose 1 mg .ROUTE .STK-MED ONE Stop: 06/27/16 07:25 Hydromorphone HCl (Dilaudid) 0 mg IVPUSH ONETIME ONE Stop: 06/27/16 09:03 Last Admin: 06/27/16 13:08 Dose: Not Given Cefazolin Sodium 2,000 mg/ (Sodium Chloride) 100 mls @ 100 mls/hr IV ONETIME ONE Stop: 06/26/16 18:48 Last Admin: 06/27/16 12:25 Dose: Not Given Cefazolin Sodium/Dextrose 2 gm (/ Premix) 50 mls @ as directed IV .STK-MED ONE Stop: 06/27/16 07:31 Cefazolin Sodium/Dextrose 2 gm (/ Premix) 50 mls @ 100 mls/hr IV Q8H [facility] Stop: 06/28/16 00:29 Last Infusion: 06/28/16 03:45 Dose: Infused Ketorolac Tromethamine (Toradol) Confirm Administered Dose 30 mg .ROUTE .STK- MED ONE Stop: 06/27/16 07:25 Ketorolac Tromethamine (Toradol) 30 mg IVPUSH Q6H PRN PRN Reason: Pain Stop: 06/28/16 09:00 Last Admin: 06/27/16 19:51 Dose: 30 mg Lidocaine (Xylocaine-Mpf 2%) Confirm Administered Dose 10 ml .ROUTE .STK-MED ONE Stop: 06/27/16 07:21 Midazolam HCl (Versed 1 Mg/Ml) Confirm Administered Dose 2 mg .ROUTE .STK-MED ONE Stop: 06/27/16 07:21 Neostigmine Methylsulfate (Neostigmine) Confirm Administered Dose 5 mg .ROUTE .STK-MED ONE Stop: 06/27/16 07:25 Octyl Cyanoacrylate (Dermabond Prineo) 1 applic TOP ONETIME ONE Stop: 06/27/16 10:31 Last Admin: 06/27/16 15:21 Dose: Not Given Ondansetron HCl (Zofran) Confirm Administered Dose 4 mg .ROUTE .STK-MED ONE Stop: 06/27/16 07:25 Phenylephrine HCl (Phenylephrine In Ns 100 Mcg/Ml) Confirm Administered Dose 1 mg .ROUTE .STK-MED ONE Stop: 06/27/16 08:49 Propofol (Diprivan 20 Ml) Confirm Administered Dose 400 mg .ROUTE .STK-MED ONE Stop: 06/27/16 07:21 Propofol (Diprivan 20 Ml) Confirm Administered Dose 200 mg .ROUTE .STK-MED ONE Stop: 06/27/16 09:07 Rocuronium [place] (Zemuron) Confirm Administered Dose 100 mg .ROUTE .STK-MED ONE Stop: 06/27/16 07:25 Succinylcholine Chloride (Succinylcholine In Ns Pf) 200 mg IV .STK-MED ONE Stop: 06/27/16 08:06 Tranexamic Acid (Cyklokapron) Confirm Administered Dose 2,000 mg .ROUTE .STK- MED ONE Stop: 06/26/16 14:51 - Exam General: alert, oriented, cooperative HEENT: Pupils equal, Pupils reactive, EOMI, Mucous membr. moist/pink Neck: supple Lungs: Clear to auscultation, Normal respiratory effort Cardiovascular: regular rate, regular rhythm, no murmurs. No: tachycardia Abdomen: bowel sounds present, soft, no tenderness, no distension Extremities: normal pulses, edema (trace edema to operative leg) Consult PN Assessment/Plan Procedures: Procedures ASSAY OF TROPONIN QUANT (01/15/16) CHEST X-RAY 1 VIEW FRONTAL (01/15/16) COMPLETE CBC W/AUTO DIFF WBC (01/15/16) COMPREHEN METABOLIC PANEL (01/15/16) CREATINE MB FRACTION (01/15/16) ELECTROCARDIOGRAM TRACING (01/15/16) EMERGENCY DEPT VISIT (01/15/16) EMERGENCY DEPT VISIT (11/01/13) THER/PROPH/DIAG INJ SC/IM (01/15/16) X-RAY EXAM HIP UNI 2-3 VIEWS (01/03/16) (1) Hx of non-ST elevation myocardial infarction (NSTEMI) SNOMED Code(s): 2151449 Code(s): I25.2 - OLD MYOCARDIAL INFARCTION Current Visit: Yes (2) HTN (hypertension) SNOMED Code(s): 45819649 Code(s): I10 - ESSENTIAL (PRIMARY) HYPERTENSION Current Visit: Yes Qualifiers: Hypertension type: essential hypertension Qualified Code(s): I10 - Essential (primary) hypertension (3) Dyslipidemia SNOMED Code(s): 243501862 Code(s): E78.5 - HYPERLIPIDEMIA, UNSPECIFIED Current Visit: Yes (4) CAD (coronary artery disease) SNOMED Code(s): 16432897 Code(s): I25.10 - ATHSCL HEART DISEASE OF [place] CORONARY ARTERY W/O ANG PCTRS Current Visit: Yes Qualifiers: Coronary Disease-Associated Artery/Lesion type: [place] artery [place] vs. transplanted heart: [place] heart Associated angina: without angina Qualified Code(s): I25.10 - Atherosclerotic heart disease of [place] coronary artery without angina pectoris (5) Obesity SNOMED Code(s): 925785185 Code(s): E66.9 - OBESITY, UNSPECIFIED Current Visit: Yes Problem List Initiated/Reviewed/Updated: Yes My Orders last 24 hours: My Active Orders 06/27/16 12:57 Telemetry Monitoring [Cardiac Monitoring] [RC] Q8H Plan: This 46 year old male admitted with Dr Rocha for R total hip arthoplasty 1. HTN: Controlled. Continue Lisinopril/HCTZ, Metoprolol XR BMP WNL. 2. CAD: Continue Plavix, and Atorvastatin 3. Anxiety: Continue Xanax 4. Hx NSTEMI: No chest pain currently. Telemetry SR, ST noted overnight intermittently. VTE: Per Ortho. Ok to discharge home, F/U with PCP PRN.
--- NOTE | 2016-06-28 11:23 | PCM48HPAN ---
Post Anesthesia Note - EVALUATION WITHIN 48HRS OF ANESTHETIC Vital Signs in Normal Range: Yes Patient Participated in Evaluation: Yes Respiratory Function Stable: Yes Airway Patent: Yes Cardiovascular Function Stable: Yes Hydration Status Stable: Yes Pain Control Satisfactory: Yes Nausea and Vomiting Control Satisfactory: Yes Mental Status Recovered: Yes - COMMENTS/OBSERVATIONS Free Text/Narrative:: Out of bed sitting in chair with stated tolerance of discomfort.
[2016-06-28] MEDS: Clopidogrel 75 MG Tab PO SCH (17:59)
[2016-06-28] MEDS: Hydrochlorothiazide 12.5 MG Cap PO SCH (17:59)
[2016-06-28] MEDS: atorvaSTATin 20 MG Tab PO SCH (17:59)
[2016-06-28] MEDS: Metoprolol Succinate 50 MG Tab.ER PO SCH (17:59)
[2016-06-28] MEDS: Multivitamins with Iron/Calcium/Folic Acid/Minerals Tab PO SCH (17:59)
[2016-06-28] MEDS: Lisinopril 10 MG Tab PO SCH (17:59)
[2016-06-29] MEDS: Acetaminophen/HYDROcodone 325-5 MG Tab PO PRN ×2 (03:20→08:18)
--- NOTE | 2016-06-29 07:05 | PCM.SN ---
- Free Text/Narrative Note: S: he is moving around well. He is ambulating with a walker. Pain is much better controlled today. O: afebrile, vital signs stable dressing clean/dry/intact with no erythema. no swelling distally. some numbness lateral to incision. normal sensation and motor distal with palpable pedal pulse. HGB 11.9 A/P: POD #2 Right HERSON - full weight bearing, PT - Home dose of plavix and SCDs for DVT prophylaxis - home when up and moving likely today
[2016-06-29] MEDS: Docusate Sodium 100 MG Cap PO SCH (08:18)
[2016-06-29 11:02] VITALS: BP 122/62
== END 2016-06-29 10:50 | disposition home or self-care (01) | DRG 301 ==
LOC: MW.MS 06:25
PROVIDERS: ADMIT Orthopaedic Surgery; ATTEND Orthopaedic Surgery
PROC: 0SR903Z Replacement of Right Hip Joint with Ceramic Synthetic Substitute, Open Approach (ICD-10-PCS; principal; 2016-06-27)
DX: M16.31 Unilateral osteoarthritis resulting from hip dysplasia, right hip (principal); I10 Essential (primary) hypertension; E78.5 Hyperlipidemia, unspecified; F41.9 Anxiety disorder, unspecified; I25.10 Atherosclerotic heart disease of native coronary artery without angina pectoris; G47.33 Obstructive sleep apnea (adult) (pediatric); E66.9 Obesity, unspecified; I25.2 Old myocardial infarction; Z88.8 Allergy status to other drugs, medicaments and biological substances; Z79.899 Other long term (current) drug therapy; Z68.39 Body mass index [BMI] 39.0-39.9, adult
CPT/HCPCS: 01214; 36415; 76000; 76000-26; 80048; 80053; 85014; 85018; 85025; 86850; 86900; 86901; 88304; 88311; 97110-GP; 97161-GP; 97530-GP; A9270-GY; C1713; C1776; J0690; J1885; J2250; J2270; J2405; J2704; J2710; J3010; J7120

== ENCOUNTER → 2016-07-10 | Outpatient (CLI) | payer BC ==
--- NOTE | 2016-07-10 13:37 | CR ---
EXAMINATION: Pelvis and right hip HISTORY: Pain COMPARISON: 01/03/2016 TECHNIQUE: AP pelvis and 2 views of the right hip FINDINGS: Right total hip hardware is demonstrated in stable position and alignment. No fracture or acute osseous abnormality. Bone mineralization is otherwise normal. 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 The SI joints are symmetric. IMPRESSION: Stable right total hip hardware.
== END ==
LOC: MW.CHORTHO 08:02
PROVIDERS: ATTEND Physician Assistant
DX: M25.551 Pain in right hip (principal); Z96.7 Presence of other bone and tendon implants
CPT/HCPCS: 73502-26-RT; 73502-RT

== ENCOUNTER → 2016-08-20 | Outpatient (CLI) | payer BC ==
--- NOTE | 2016-08-22 11:51 | CR ---
EXAM DATE: 08/20/16 PATIENT'S AGE: 46 Patient: SOL EATON Facility: [place], [place] Site . Site : [id number] Study: XRay Extremity Right [id number]/24/2017 1:40:48 PM Ordering Physician: Josefina Wong Final Report: HISTORY: Right hip pain with right hip arthroplasty. Findings: AP and frogleg views of the pelvis as well as a cross-table lateral view of the right hip excludes the iliac crest. Right total hip arthroplasty is present. The acetabular cup is fixed with a single screw. The femoral component is located centrally within the medullary cavity. No fracture or dislocation is seen. Impression: Right total hip arthroplasty in anatomic alignment without fracture or complication. Dictated by Iram Denny MD @ Aug 21 2016 10:10PM (Electronic Signature) Report Signed by Proxy and Original Signed Document filed in the Medical Record. BAM
== END ==
LOC: MW.CHORTHO 07:43
PROVIDERS: ATTEND Orthopaedic Surgery
DX: M25.551 Pain in right hip (principal); Z96.641 Presence of right artificial hip joint
CPT/HCPCS: 73502-26-RT; 73502-RT

== ENCOUNTER 2017-01-16 09:44 | Emergency (ER) | payer BC ==
--- NOTE | 2017-01-16 10:57 | EDM.PDOC ---
ED HPI GENERAL MEDICAL PROBLEM - General Chief Complaint: Back Pain or Injury Stated Complaint: RIGHT LOWER BACK PAIN Time Seen by Provider: 01/16/17 10:03 Source of Information: Reports: Patient History Limitations: Reports: No Limitations - History of Present Illness INITIAL COMMENTS - FREE TEXT/NARRATIVE: History of present illness: []Patient developed right low back pain yesterday and has been progressively worsening. He denies any trauma, straining or twisting injuries, blood in his urine or difficulty urinating. He has not had this pain in the past. He denies any fevers, chills, nausea, vomiting, diarrhea, abdominal pain or testicular pain. He denies any radiation of pain or numbness or tingling down his legs Review of systems: As per history of present illness and below otherwise all systems reviewed and negative. Past medical history: As per history of present illness and as reviewed below otherwise noncontributory. Surgical history: As per history of present illness and as reviewed below otherwise noncontributory. Social history: No reported history of drug or alcohol abuse. Family history: As per history of present illness and as reviewed below otherwise noncontributory. Physical exam: General: Well developed, well nourished in NAD HEENT: Atraumatic, normocephalic, pupils reactive, negative for conjunctival pallor or scleral icterus, mucous membranes moist, throat clear, neck supple, nontender, trachea midline. Lungs: Clear to auscultation, breath sounds equal bilaterally, chest nontender. Heart: S1S2, regular, negative for clicks, rubs, or JVD. Abdomen: Soft, nondistended, nontender. Negative for masses or hepatosplenomegaly. Negative for costovertebral tenderness. He has palpable tenderness in the muscle of his right flank. Pelvis: Stable nontender. Genitourinary: Deferred. Rectal: Deferred. Extremities: Atraumatic, negative for cords or calf pain. Neurovascular unremarkable. Neuro: Awake, alert, oriented. Cranial nerves II through XII unremarkable. Cerebellum unremarkable. Motor and sensory unremarkable throughout. Exam nonfocal. Diagnostics: []UA negative for blood Therapeutics: []Norflex given in the ED Impression: []Low back pain with spasm Plan: []Norflex, ibuprofen, ice and/or heat follow-up with primary care Definitive disposition and diagnosis as appropriate pending reevaluation and review of above. right flank Pain Score (Numeric/FACES): 7 - Related Data Allergies Allergy/AdvReac Type Severity Reaction Status Date / Time aspirin Allergy Cannot Verified 01/16/17 09:45 Remember Sulfa (Sulfonamide Allergy Anaphylactic Verified 01/16/17 09:45 Antibiotics) Shock sulfamethoxazole Allergy Anaphylactic Verified 01/16/17 09:45 [From Bactrim] Shock trimethoprim [From Bactrim] Allergy Anaphylactic Verified 01/16/17 09:45 Shock venom-honey bee Allergy Anaphylactic Verified 01/16/17 09:45 [bee venom (honey bee)] Shock Home Meds: Home Meds Lisinopril/Hydrochlorothiazide [Lisinopril-Hctz 10-12.5 mg Tab] 1 each PO DAILY 01/15/16 [History] Clopidogrel Bisulfate [Plavix] 75 mg PO DAILY 06/22/16 [History] Metoprolol Succinate 50 mg PO DAILY 06/22/16 [History] atorvaSTATin Calcium [Atorvastatin Calcium] 20 mg PO DAILY 06/22/16 [History] DULoxetine HCl [Cymbalta] 30 mg PO DAILY 06/27/16 [History] Hydrocodone/Acetaminophen [Hydrocodon-Acetaminophen 5-325] 1 each PO Q6HR PRN # 16 tablet 01/16/17 [Rx] Ondansetron [Zofran ODT] 4 mg PO Q8H PRN #12 tab.dis 01/16/17 [Rx] Orphenadrine [Norflex] 100 mg PO BID PRN #16 tab.er 01/16/17 [Rx] Past Medical History - Past Health History Medical/Surgical History: Denies Medical/Surgical History HEENT History: Reports: None Cardiovascular History: Reports: CAD, High Cholesterol, Hypertension, [place] Other Cardiovascular History: states NH in dec 2015 Respiratory History: Reports: Sleep Apnea Other Respiratory History: uses CPAP Gastrointestinal History: Reports: None Genitourinary History: Reports: None Musculoskeletal History: Reports: Arthritis Neurological History: Reports: None Psychiatric History: Reports: Anxiety, Depression Endocrine/Metabolic History: Reports: Obesity/BMI 30+ Hematologic History: Reports: None Immunologic History: Reports: None Oncologic (Cancer) History: Reports: None Dermatologic History: Reports: None - Infectious Disease History Infectious Disease History: Reports: None - Past Surgical History Head Surgeries/Procedures: Reports: None Social & Family History - Family History Family Medical History: Noncontributory - Tobacco Use Smoking Status *Q: Never Smoker Second Hand Smoke Exposure: No - Caffeine Use Caffeine Use: Reports: Coffee - Alcohol Use Days Per Week of Alcohol Use: 0 - Recreational Drug Use Recreational Drug Use: No - Living Situation & Occupation Living situation: Reports: with Significant Other Occupation: Employed ED ROS GENERAL - Review of Systems Review Of Systems: See Below ED EXAM,LOWER BACK PAIN/INJURY - Physical Exam Exam: See Below (See history of present illness) Course - Vital Signs Last Recorded V/S: Last Vital Signs Temp 36.2 C 01/16/17 09:56 Pulse 73 01/16/17 09:56 Resp 18 01/16/17 09:56 BP 140/94 H 01/16/17 09:56 Pulse Ox 96 01/16/17 09:56 - Orders/Labs/Meds Labs: Laboratory Tests 01/16/17 Range/Units 10:00 Urine Color YELLOW Urine Appearance CLEAR Urine pH 6.0 (5.0-8.0) Ur Specific [place] 1.020 (1.001-1.035) Urine Protein NEGATIVE (NEGATIVE) mg/dL Urine Glucose (UA) NEGATIVE (NEGATIVE) mg/dL Urine Ketones NEGATIVE (NEGATIVE) mg/dL Urine Occult Blood SMALL H (NEGATIVE) Urine Nitrite NEGATIVE (NEGATIVE) Urine Bilirubin NEGATIVE (NEGATIVE) Urine Urobilinogen 0.2 (<2.0) EU/dL Ur Leukocyte Esterase NEGATIVE (NEGATIVE) Urine RBC 0-2 (0-2/HPF) Urine WBC 1-4 (0-5/HPF) Ur Epithelial Cells FEW (NONE-FEW) Amorphous Sediment LIGHT (NEGATIVE) Urine Bacteria FEW (NEGATIVE) Urine Mucus LIGHT (NONE-MOD) Meds: Medications Discontinued Medications Generic Name Dose Route Start Last Admin Trade Name Freq PRN Reason Stop Dose Admin Hydrocodone Bitart/Acetaminophen 2 tab 01/16/17 11:41 01/16/17 11:46 [place] 325-10 Mg PO 01/16/17 11:42 2 tab ONETIME ONE Administration Ondansetron HCl 8 mg 01/16/17 11:39 01/16/17 11:46 Zofran Odt PO 01/16/17 11:40 8 mg ONETIME ONE Administration Orphenadrine Citrate 60 mg 01/16/17 10:52 01/16/17 11:21 Norflex IM 01/16/17 10:53 60 mg Q12H ONE Administration Departure - Departure Time of Disposition: 12:12 Disposition: Home, Self-Care 01 Condition: Good Clinical Impression: Lumbar paraspinal muscle spasm - Discharge Information Prescriptions: Hydrocodone/Acetaminophen [Hydrocodon-Acetaminophen 5-325] 1 each PO Q6HR PRN # 16 tablet PRN Reason: Pain Ondansetron [Zofran ODT] 4 mg PO Q8H PRN #12 tab.dis PRN Reason: Nausea Orphenadrine [Norflex] 100 mg PO BID PRN #16 tab.er PRN Reason: Pain Referrals: PCP,None [Primary Care Provider] - Forms: ED Department Discharge Additional Instructions: The following information is given to patients seen in the emergency department who are being discharged to home. This information is to outline your options for follow-up care. We provide all patients seen in our emergency department with a follow-up referral. The need for follow-up, as well as the timing and circumstances, are variable depending upon the specifics of your emergency department visit. If you don't have a primary care physician on staff, we will provide you with a referral. We always advise you to contact your personal physician following an emergency department visit to inform them of the circumstance of the visit and for follow-up with them and/or the need for any referrals to a consulting specialist. The emergency department will also refer you to a specialist when appropriate. This referral assures that you have the opportunity for follow-up care with a specialist. All of these measure are taken in an effort to provide you with optimal care, which includes your follow-up. Under all circumstances we always encourage you to contact your private physician who remains a resource for coordinating your care. When calling for follow-up care, please make the office aware that this follow-up is from your recent emergency room visit. If for any reason you are refused follow-up, please contact the [facility] Emergency Department at and asked to speak to the emergency department charge nurse. [place], Norflex, Zofran for pain and nausea follow-up with primary care return if symptoms worsen or change [facility] [address] [place] [id number]
[2017-01-16] MEDS ORDERED: Ondansetron 8 MG Tab.DIS PO ONE (11:39)
[2017-01-16] MEDS ORDERED: Acetaminophen/HYDROcodone 325-10 MG Tab PO ONE (11:41)
[2017-01-16 12:23] VITALS: BP 155/87
== END 2017-01-16 12:21 | disposition home or self-care (01) ==
LOC: MW.ED 09:44
DX: M62.830 Muscle spasm of back (principal); I10 Essential (primary) hypertension; I25.2 Old myocardial infarction; I25.10 Atherosclerotic heart disease of native coronary artery without angina pectoris; E78.00 Pure hypercholesterolemia, unspecified; G47.30 Sleep apnea, unspecified; M19.90 Unspecified osteoarthritis, unspecified site; F32.9 Major depressive disorder, single episode, unspecified; E66.9 Obesity, unspecified; Z79.02 Long term (current) use of antithrombotics/antiplatelets; Z79.899 Other long term (current) drug therapy; Z88.2 Allergy status to sulfonamides; Z88.1 Allergy status to other antibiotic agents; Z91.030 Bee allergy status; Z88.6 Allergy status to analgesic agent; Z68.1 Body mass index [BMI] 19.9 or less, adult
CPT/HCPCS: 81001; 96372; 99283; A9270; J2360

== ENCOUNTER 2023-01-02 18:41 | Emergency (ER) | payer BC ==
[2023-01-02] MEDS ORDERED: Sodium Chloride 0.9% 1,000 ML IV ONE (19:58)
[2023-01-02 20:23] LABS: BASOPHILS PERCENT AUTO 0.2 % (0.0-1.5); EOSINOPHILS ABSOLUTE AUTO 0.4 K/uL (0.0-0.7); EOSINOPHILS PERCENT AUTO 3.4 % (0.0-7.0); HEMOGLOBIN 15.4 g/dL (13.0-17.0); LYMPHOCYTES ABSOLUTE AUTO 1.6 K/uL (0.6-2.4); LYMPHOCYTES PERCENT AUTO 13.8 % (16.0-40.0); MEAN CORPUSCULAR HEMOGLOBIN 27.4 pg (27.0-32.0); MEAN CORPUSCULAR HGB CONC 33.5 g/dL (31.0-37.0); MEAN CORPUSCULAR VOLUME 81.7 fL (80.0-98.0); MONOCYTES ABSOLUTE AUTO 1.6 K/uL (0.0-0.8); MONOCYTES PERCENT AUTO 13.8 % (0.0-15.0); NEUTROPHILS ABSOLUTE AUTO 8.1 K/uL (1.4-5.7); NEUTROPHILS PERCENT AUTO 68.8 % (48.0-80.0); NRBC ABSOLUTE 0 K/uL; PLATELET COUNT,PLT 184 K/uL (150-400); RED BLOOD CELL COUNT 5.63 M/uL (4.50-5.90); WHITE BLOOD CELL COUNT,WBC 11.78 K/uL (4.0-11.0)
[2023-01-02 20:52] LABS: A/G RATIO 0.6 (0.9-1.6); ALBUMIN 3.1 g/dL (3.4-5.0); BILIRUBIN TOTAL 0.7 mg/dL (0.2-1.0); CALCIUM 8.9 mg/dL (8.5-10.1); CREATININE 1.1 mg/dL (0.8-1.3); EST CRCL DRUG DOSING (CG) 92.82 mL/min; POTASSIUM,K 4.8 mmol/L (3.5-5.1); PROTEIN TOTAL,TP 8.2 g/dL (6.4-8.2)
[2023-01-02] MEDS ORDERED: Lactulose Soln 10 GM/15 ML 15 ML UD Cup PO ONE (21:28)
[2023-01-03 01:18] VITALS: BP 145/78; PULSE 97
== END 2023-01-03 01:18 | disposition home or self-care (01) ==
LOC: MW.ED 18:41
DX: K59.00 Constipation, unspecified (principal); I25.2 Old myocardial infarction; E66.9 Obesity, unspecified; Z79.899 Other long term (current) drug therapy; Z88.6 Allergy status to analgesic agent; Z88.8 Allergy status to other drugs, medicaments and biological substances; Z91.030 Bee allergy status; Z68.41 Body mass index [BMI] 40.0-44.9, adult
CPT/HCPCS: 36415; 74018; 80053; 83690; 85025; 99283; A9270